=== PATIENT | male | born 1940 | race Caucasian/White ===

== ENCOUNTER 2017-08-16 09:23 | Emergency (ER) | payer MEDICARE, BC, SELFPAY ==
[2017-08-16 09:41] VITALS: BP 97/30; PULSE 72; RESP 20; TEMP 36.5; O2SAT 100
[2017-08-16 09:57] VITALS: BP 115/34
--- NOTE | 2017-08-16 10:20 | ED.LOWEXIN ---
HPI - Extremity Injury (Lower) General Chief Complaint: Extremity Injury, Lower Stated Complaint: HIP PAIN Time Seen by Provider: 08/16/17 09:27 History of Present Illness HPI Narrative: HPI 77-year-old obese male with DM with subsequent peripheral neuropathy and ESRD s/p transplant as well as chronic right hip pain secondary to osteoarthritis presents with increased rate of pain after driving from [place]. Patient reports that over the course of his drive is chronic pain began gradually worsening. The pain is similar in nature to his long-standing pattern but is stronger than normal. Patient reports that he is previously evaluated at the [facility] with a x-ray of his hip demonstrating osteoarthritis and evaluation without evidence of further pathology. Patient was recommended to take acetaminophen. Patient reports that he infrequently takes us for pain as a feels like he takes more medication than he already needs. Patient denies a history of DVT or PE. Patient denies trauma, fevers, chills, malaise, dysuria. Patient does not have a local PCP as he is in good health. 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 ROS: Negative constitutional, eye, cardiovascular, pulmonary, GI, , MSK, skin, neurologic, psychiatric, endocrine unless noted in the HPI. Exam Gen: Pleasant, non-toxic appearing, resting comfortably. HEENT: NC, AT, PEERL, EOMI. Resp: Clear to auscultation bilaterally, mildly increased work of breathing (baseline per patient and spouse), no accessory muscle usage. Card: Regular rate and rhythm with no murmurs, rubs, or gallops, extremities warm and well perfused. GI: Non-tender to palpation throughout all quadrants, no focal tenderness at McBurney's point, negative Syed's sign, non-distended, no rebound or guarding. : No suprapubic tenderness to palpation. MSK: No visible deformities, strength and tone without visually appreciable deficit. Right lower extremity with focal tenderness over the greater trochanter of the hip, joint without swelling, tenderness, fluctuance, crepitus, overlying erythema, or warmth. Pelvis stable nontender to palpation. Sign, calf, visually normal with soft muscle compartments and nontender to palpation. Hip, knee, ankle with full functional range of motion. Sensation intact to touch of the foot, 2+ DP pulse. Patient ambulatory with mildly antalgic but steady gait. Vascular: left upper extremity with a fistula, palpable thrill. Both calves and thighs of equal size and nontender to palpation bilaterally. Skin: Normal color with no visible lesions. Neuro: AO x 3, no facial asymmetry, vision and hearing WNL. Psych: Mood and affect appropriate. MDM Previous chart, nursing note, labs, imaging, and vitals reviewed. A: 77-year-old obese male with DM with subsequent peripheral neuropathy and ESRD s/p transplant as well as chronic right hip pain secondary to osteoarthritis presents with increased rate of pain after driving from [place]. DDx: osteoarthritis, crystalline arthropathy, septic arthropathy, fracture, DVT. Evaluation: physical exam without evidence of effusion or active crystalline or septic joint pathology. Given the absence of trauma doubt fracture. As the patient is having a provocation of pain consistent with his long-standing pattern suspect osteoarthritis. Location of pain and exam are not consistent with DVT. Patient prescribed Crum 5-325?10, 1-2 tabs q6hr PRN pain. Instructed to use acetaminophen for main pain control. Instructed to follow up with local PCP for further evaluation and care. Impression: right hip pain (please reference below for remainder of encounter information) Exam Initial Vital Signs Initial Vital Signs: Vital Signs Temperature 97.7 F 08/16/17 09:41 Pulse Rate 72 08/16/17 09:41 Respiratory Rate 20 08/16/17 09:41 Blood Pressure 97/30 L 08/16/17 09:41 Pulse Oximetry 100 08/16/17 09:41 Course Vital Signs - 8 hr 08/16/17 09:41 08/16/17 09:57 Temperature 97.7 F Pulse Rate 72 Respiratory Rate 20 Blood Pressure 97/30 L Blood Pressure [Right Arm] 115/34 L Pulse Oximetry 100
== END 2017-08-16 10:43 | disposition home or self-care (01) ==
PROVIDERS: Emergency Provider Emergency Medicine
DX: M25.551 Pain in right hip (principal)
CPT/HCPCS: 99282

== ENCOUNTER → 2017-09-06 17:29 | Outpatient (CLI) | payer MEDICARE, BC, SELFPAY ==
--- NOTE | 2017-09-06 17:41 | DI.MRI.S_ITS ---
PROCEDURE: MR LUMBAR SPINE WO CON INDICATIONS: LUMBAR RADICULOPATHY TECHNIQUE: Noncontrast sagittal T1 spin echo and T2 fast echo, sagittal STIR, axial T1 and T2 fast spin echo through the lumbar spine. In cases with scoliosis, additional coronal T2 fast spin echo may be performed. COMPARISON: [facility] [place], [place], XR LUMBAR SPINE WITH OLBIQUES PLUS FLEXION EXTENSION, 08/30/2017, 11:16. [facility] Outside Film, CT, CT LUMBAR SPINE WITHOUT CONTRAST, 08/20/2017, 16:39. FINDINGS: Image quality: Excellent. Alignment and Curvature: There is moderate levoscoliosis. Bone Marrow: Independently signal changes are present. No acute vertebral body compression fractures. Spinal Cord: Conus medullaris terminates at the T12 level. Visualized cord demonstrates normal signal and size. Paraspinous Soft Tissues: No paravertebral masses. Severe bilateral renal atrophy. L1-L2: Minimal loss of disc height. Mild disc desiccation. There is mild posterior disc bulge. The central canal is patent. No foraminal stenosis. L2-L3: Mild loss of disc height and disc desiccation. There is broad posterior disc bulge and disc osteophyte complex. The central canal is [id number]-gq-zqceanomzz narrowed. Moderate right and mild left foraminal stenosis. L3-L4: Preserved disc height. Moderate disc desiccation. There is broad posterior disc bulge and posterior central disc protrusion with the protruding disc measuring 7 mm anterior posterior x 12 mm transverse x 9 mm cephalocaudal. Mild bilateral facet arthropathy and hypertrophy of ligamentum flavum. The central canal is severely narrowed. Ocnkbxbt-[id number]-[id number] right and mild left foraminal stenosis. L4-L5: Minimal loss of disc height. Moderate disc desiccation. There is broad posterior disc bulge. There is superimposed left posterior paramedian disc protrusion and osteophyte complex. Small annular tear is noted posterior centrally. Mild bilateral facet arthropathy and hypertrophy of ligamentum flavum. The central canal is jmro-dx-rzzsivlfls narrowed. Severe left and moderate right foraminal stenosis. L5-S1: Preserved disc height. Moderate disc desiccation. There is broad posterior disc bulge and left posterolateral disc osteophyte complex. The central canal is minimally narrowed. Severe left foraminal stenosis. Normal right foraminal stenosis. IMPRESSION: 1. Multilevel degenerative disc disease and facet arthropathy as described. 2. Severe central canal stenosis at L3-L4, and [id number] central canal stenosis at L2-L3 and L4-L5. 3. Multilevel foraminal stenoses as described, severe at L4-L5 on the left and L5-S1 on the left, [id number] at L3-L4 on the right, and moderate at L4-L5 on the right. 4. Bilateral renal atrophy. Dictated by: Kathryn Perkins M.D. on 09/07/2017 at 9:45 Approved by: Kathryn Perkins M.D. on 09/07/2017 at 10:23
== END ==
PROVIDERS: Visit Provider Physical Medicine & Rehabilitation
DX: M51.16 Intervertebral disc disorders with radiculopathy, lumbar region (principal); M47.816 Spondylosis without myelopathy or radiculopathy, lumbar region; M48.061 Spinal stenosis, lumbar region without neurogenic claudication
CPT/HCPCS: 72148